=== PATIENT | female | born 1980 | race Caucasian/White ===

== ENCOUNTER 2017-09-23 14:58 | Emergency (ER) | payer MEDICAID ==
[~2017-09-23] VITALS: Ht 170.2 cm; Wt 71.4 kg
[~2017-09-23 14:58] MED LIST: AMOXICILLIN875 MG PO; ATARAX 25MG25 MG/TAB PO; ATIVAN 0.50.5 MG/TAB PO; BIRTH CONTROL; CELEXA 20MG20 MG/TAB PO; COLACE 100100 MG/CAP PO; FENTANYL 25 MCG TD; LEXAPRO 5MG5 MG PO; LORTAB 5/500 501 TAB PO; LOVENOX 3030 MG/0.3 SQ; METRONIDAZOLE500 MG PO; MIRALAX PA17 GM/Dose PO; MS CONTIN 660 MG/TAB PO; NEURONTIN300 MG/CAP PO; NORCO 325 MG-51 TAB PO; PHENERGAN W/CO120 ML PO; PRENATAL VITAMI1 TA5 PO; PRENATAL1 TA4 PO; ROBAXIN 75750 MG/TAB PO; ROXICODONE 55 MG/TAB PO; SENOKOT S 50 MG1 TAB PO; SEPTRA DS 8001 TAB PO; VYVANSE50 MG PO; ZITHROMAX Z PA250 MG PO; [UNRECOGNIZED DRUG - OTHER]
[2017-09-23 15:00] VITALS: BP 126/87; TEMP 98
[2017-09-23 17:14] VITALS: PULSE 79
== END 2017-09-23 17:15 | disposition home or self-care (01) ==
LOC: COL.ER 14:58
DX: J10.1 Influenza due to other identified influenza virus with other respiratory manifestations (principal); F17.210 Nicotine dependence, cigarettes, uncomplicated; Z98.51 Tubal ligation status; Z98.890 Other specified postprocedural states; Z90.81 Acquired absence of spleen